=== PATIENT | female | born 1960 | race African-American/Black ===

== ENCOUNTER 2022-12-22 21:42 | Inpatient (IN) | payer BC ==
[~2022-12-22] VITALS: Ht 157.5 cm; Wt 117.9 kg
[2022-12-22 20:00] VITALS: BP 171/65
[2022-12-22 22:01] VITALS: BP 164/65; TEMP 98.5; O2SAT 97
[2022-12-22] MEDS ORDERED: LIDO30AD10 TD (22:10)
[2022-12-22] MEDS ORDERED: BACL10TA PO (22:10)
[2022-12-22] MEDS ORDERED: PRED20TA PO (22:10)
[2022-12-22] MEDS ORDERED: GABA-532 PO (22:10)
[2022-12-22] MEDS: hydrALAZINE HCL 25 MG TABLET PO PRN (23:16)
[2022-12-22] MEDS: HYDROCODONE/APAP 5-325MG TABLET PO PRN (23:17)
[2022-12-23 04:36] VITALS: BP 147/71; TEMP 98.4; O2SAT 96
[2022-12-23] MEDS ORDERED: BISACODYL 10 MG SUPP.RECT RC PRN (07:30)
[2022-12-23 08:00] VITALS: BP 163/83; TEMP 97; O2SAT 98
[2022-12-23] MEDS ORDERED: GABAPENTIN 100 MG CAPSULE PO SCH (09:00)
[2022-12-23 09:26] VITALS: BP 163/83; TEMP 97
[2022-12-23] MEDS: predniSONE 20 MG TABLET PO SCH ×2 (10:07→17:16)
[2022-12-23] MEDS: BACLOFEN 10 MG TABLET PO SCH ×3 (10:08→17:16)
[2022-12-23] MEDS: DOCUSATE SODIUM 100 MG CAPSULE PO SCH ×2 (10:08→20:59)
[2022-12-23] MEDS: GABAPENTIN 300 MG CAPSULE PO SCH ×3 (10:08→17:16)
[2022-12-23] MEDS: LIDOCAINE 5% PATCH TD SCH (11:33)
[2022-12-23 16:15] VITALS: BP 132/80; TEMP 97.2
[2022-12-23 22:44] VITALS: BP 140/86; TEMP 98.4; O2SAT 96
[2022-12-24 04:24] VITALS: BP 134/83; TEMP 98.2; O2SAT 99
[2022-12-24] MEDS: PANTOPRAZOLE SODIUM 40 MG TABLET.DR PO SCH (06:32)
[2022-12-24] MEDS: HYDROCODONE/APAP 5-325MG TABLET PO PRN (06:34)
[2022-12-24 07:55] VITALS: BP 144/63; TEMP 97.6; O2SAT 98
[2022-12-24] MEDS: LIDOCAINE 5% PATCH TD SCH (08:54)
[2022-12-24] MEDS: BACLOFEN 10 MG TABLET PO SCH ×3 (08:54→17:08)
[2022-12-24] MEDS: GABAPENTIN 300 MG CAPSULE PO SCH ×3 (08:55→17:08)
[2022-12-24] MEDS: DOCUSATE SODIUM 100 MG CAPSULE PO SCH ×2 (08:55→21:36)
[2022-12-24] MEDS: predniSONE 20 MG TABLET PO SCH ×2 (08:55→17:08)
[2022-12-24 15:21] VITALS: BP 161/74; TEMP 98.6; O2SAT 98
[2022-12-24 20:45] VITALS: BP 150/76; TEMP 97.7; O2SAT 99
[2022-12-25 04:30] VITALS: BP 178/80; TEMP 97.8; O2SAT 97
[2022-12-25] MEDS: ACETAMINOPHEN 325 MG TABLET PO PRN (04:58)
[2022-12-25] MEDS: hydrALAZINE HCL 25 MG TABLET PO PRN (04:59)
[2022-12-25] MEDS: PANTOPRAZOLE SODIUM 40 MG TABLET.DR PO SCH (06:19)
[2022-12-25 07:37] VITALS: BP 155/76; TEMP 98.4; O2SAT 98
[2022-12-25] MEDS: predniSONE 20 MG TABLET PO SCH ×2 (09:11→17:23)
[2022-12-25] MEDS: DOCUSATE SODIUM 100 MG CAPSULE PO SCH ×2 (09:11→21:04)
[2022-12-25] MEDS: BACLOFEN 10 MG TABLET PO SCH ×3 (09:11→17:23)
[2022-12-25] MEDS: GABAPENTIN 300 MG CAPSULE PO SCH (09:11)
[2022-12-25] MEDS: LIDOCAINE 5% PATCH TD SCH (09:19)
[2022-12-25 15:41] VITALS: BP 167/73; TEMP 97.6; O2SAT 99
[2022-12-25 20:30] VITALS: BP 144/89; TEMP 98.2; O2SAT 98
[2022-12-26 05:04] VITALS: BP 149/59; TEMP 98.4; O2SAT 97
[2022-12-26] MEDS: PANTOPRAZOLE SODIUM 40 MG TABLET.DR PO SCH (06:48)
[2022-12-26 08:00] VITALS: TEMP 98.4; O2SAT 98
[2022-12-26] MEDS: BACLOFEN 10 MG TABLET PO SCH ×3 (09:13→16:53)
[2022-12-26] MEDS: DOCUSATE SODIUM 100 MG CAPSULE PO SCH ×2 (09:13→20:42)
[2022-12-26] MEDS: LIDOCAINE 5% PATCH TD SCH (09:13)
[2022-12-26] MEDS: ACETAMINOPHEN 325 MG TABLET PO PRN (11:24)
[2022-12-26 12:10] VITALS: BP 167/83; TEMP 97.4
[2022-12-26] MEDS: hydrALAZINE HCL 25 MG TABLET PO PRN (12:16)
[2022-12-26 15:44] VITALS: BP 133/69; TEMP 97.5; O2SAT 98
[2022-12-26 20:00] VITALS: BP 145/77; TEMP 98.2; O2SAT 98
[2022-12-27] MEDS: PANTOPRAZOLE SODIUM 40 MG TABLET.DR PO SCH (06:16)
[2022-12-27] MEDS: hydrALAZINE HCL 25 MG TABLET PO PRN ×2 (06:23→20:13)
[2022-12-27] MEDS: HYDROCODONE/APAP 5-325MG TABLET PO PRN (06:23)
[2022-12-27 07:45] VITALS: BP 123/59; TEMP 97.8; O2SAT 98
[2022-12-27] MEDS: LIDOCAINE 5% PATCH TD SCH (08:23)
[2022-12-27] MEDS: DOCUSATE SODIUM 100 MG CAPSULE PO SCH ×2 (08:23→20:12)
[2022-12-27] MEDS: BACLOFEN 10 MG TABLET PO SCH ×3 (08:23→17:24)
[2022-12-27 16:10] VITALS: BP 140/63; TEMP 98; O2SAT 98
[2022-12-27 19:45] VITALS: BP 165/69; TEMP 97.8; O2SAT 98
[2022-12-27] MEDS: TEMAZEPAM 7.5 MG CAPSULE PO PRN (21:21)
[2022-12-28 04:00] VITALS: BP 138/70; TEMP 98.2; O2SAT 98
[2022-12-28 07:33] VITALS: BP 146/63; TEMP 97.8; O2SAT 98
[2022-12-28] MEDS: PANTOPRAZOLE SODIUM 40 MG TABLET.DR PO SCH (09:02)
[2022-12-28] MEDS: LIDOCAINE 5% PATCH TD SCH (09:03)
[2022-12-28] MEDS: DOCUSATE SODIUM 100 MG CAPSULE PO SCH ×2 (09:03→20:10)
[2022-12-28] MEDS: BACLOFEN 10 MG TABLET PO SCH ×3 (09:03→17:37)
[2022-12-28] MEDS: HYDROCODONE/APAP 5-325MG TABLET PO PRN (09:04)
[2022-12-28 16:00] VITALS: BP 160/67; TEMP 98; O2SAT 99
[2022-12-28 20:00] VITALS: BP 148/78; TEMP 98; O2SAT 99
[2022-12-28] MEDS: TEMAZEPAM 7.5 MG CAPSULE PO PRN (22:27)
[2022-12-29 05:49] VITALS: BP 158/74; TEMP 98; O2SAT 99
[2022-12-29] MEDS: ACETAMINOPHEN 325 MG TABLET PO PRN (06:07)
[2022-12-29] MEDS: PANTOPRAZOLE SODIUM 40 MG TABLET.DR PO SCH (06:08)
[2022-12-29] MEDS: hydrALAZINE HCL 25 MG TABLET PO PRN (06:08)
[2022-12-29 07:43] VITALS: BP 143/64; TEMP 98; O2SAT 100
[2022-12-29] MEDS: DOCUSATE SODIUM 100 MG CAPSULE PO SCH ×2 (08:18→20:04)
[2022-12-29] MEDS: LIDOCAINE 5% PATCH TD SCH (08:18)
[2022-12-29] MEDS: BACLOFEN 10 MG TABLET PO SCH ×3 (08:18→16:21)
[2022-12-29 15:56] VITALS: BP 128/58; TEMP 98.5; O2SAT 98
[2022-12-29 20:00] VITALS: BP 166/82; TEMP 97.8; O2SAT 98
[2022-12-30 04:00] VITALS: BP 128/58; TEMP 98.6; O2SAT 98
[2022-12-30] MEDS: PANTOPRAZOLE SODIUM 40 MG TABLET.DR PO SCH (06:02)
[2022-12-30 07:43] VITALS: BP 140/58; TEMP 98.2; O2SAT 99
[2022-12-30] MEDS: DOCUSATE SODIUM 100 MG CAPSULE PO SCH ×2 (08:55→21:47)
[2022-12-30] MEDS: LIDOCAINE 5% PATCH TD SCH (08:55)
[2022-12-30] MEDS: BACLOFEN 10 MG TABLET PO SCH ×3 (08:55→17:03)
[2022-12-30] MEDS: ACETAMINOPHEN 325 MG TABLET PO PRN ×2 (09:06→21:48)
[2022-12-30 15:44] VITALS: BP 140/44; TEMP 98.2; O2SAT 98
[2022-12-30 20:25] VITALS: BP 134/69; TEMP 98.5; O2SAT 98
[2022-12-31 04:00] VITALS: BP 154/78; TEMP 97.5; O2SAT 98
[2022-12-31] MEDS: PANTOPRAZOLE SODIUM 40 MG TABLET.DR PO SCH (07:00)
[2022-12-31 08:00] VITALS: BP 168/71; TEMP 98.5; O2SAT 100
[2022-12-31] MEDS: hydrALAZINE HCL 25 MG TABLET PO PRN (08:18)
[2022-12-31] MEDS: BACLOFEN 10 MG TABLET PO SCH ×3 (08:18→16:10)
[2022-12-31] MEDS: LIDOCAINE 5% PATCH TD SCH (08:18)
[2022-12-31] MEDS: DOCUSATE SODIUM 100 MG CAPSULE PO SCH ×2 (08:18→20:02)
[2022-12-31 15:34] VITALS: BP 155/74; TEMP 98.7; O2SAT 99
[2022-12-31 21:34] VITALS: TEMP 98.2; O2SAT 99
[2023-01-01 05:02] VITALS: BP 153/66; TEMP 98.2; O2SAT 99
[2023-01-01] MEDS: PANTOPRAZOLE SODIUM 40 MG TABLET.DR PO SCH (06:00)
[2023-01-01 07:49] VITALS: BP 155/51; TEMP 98.3; O2SAT 94
[2023-01-01] MEDS: LIDOCAINE 5% PATCH TD SCH (08:32)
[2023-01-01] MEDS: BACLOFEN 10 MG TABLET PO SCH ×3 (08:33→17:12)
[2023-01-01] MEDS: DOCUSATE SODIUM 100 MG CAPSULE PO SCH ×2 (08:33→20:44)
[2023-01-01] MEDS: ACETAMINOPHEN 325 MG TABLET PO PRN (13:58)
[2023-01-01 15:40] VITALS: BP 135/58; TEMP 97.9; O2SAT 98
[2023-01-01 20:15] VITALS: BP 147/67; TEMP 98.2; O2SAT 98
== END 2023-01-01 21:39 | disposition short-term general hospital (02) | DRG 552 ==
PROVIDERS: ADMIT Physical Medicine & Rehabilitation Pain Medicine; ATTEND Physical Medicine & Rehabilitation Pain Medicine
DX: M51.16 Intervertebral disc disorders with radiculopathy, lumbar region (principal); D68.59 Other primary thrombophilia; Z68.42 Body mass index [BMI] 45.0-49.9, adult; M47.26 Other spondylosis with radiculopathy, lumbar region; M21.371 Foot drop, right foot; E66.01 Morbid (severe) obesity due to excess calories; M17.0 Bilateral primary osteoarthritis of knee; R53.1 Weakness; R40.0 Somnolence; R03.0 Elevated blood-pressure reading, without diagnosis of hypertension
CPT/HCPCS: 72148; 97535-GO-CO; A4663; J7512

== ENCOUNTER 2023-01-04 21:05 | Inpatient (IN) | payer BC ==
[~2023-01-04] VITALS: Ht 157.5 cm; Wt 115.7 kg
[~2023-01-04 21:05] MED LIST: BACL10TA PO; GABA-532 PO; LIDO30AD10 TD; PRED20TA PO
[2023-01-04 21:39] VITALS: BP 149/62; TEMP 97.9; O2SAT 99
[2023-01-04] MEDS ORDERED: PANT40TA49 PO (22:51)
[2023-01-04] MEDS ORDERED: ACET-3102 PO (22:51)
[2023-01-04] MEDS ORDERED: CLON0.1T PO (22:51)
[2023-01-04] MEDS ORDERED: LIDO1ADH82 TP (22:51)
[2023-01-04] MEDS ORDERED: ONDA4AMP IV (22:51)
[2023-01-04] MEDS ORDERED: BACL10TA PO (22:51)
[2023-01-04] MEDS ORDERED: DOCU100T2 PO (22:51)
[2023-01-04] MEDS ORDERED: AMLO10TA59 PO (22:51)
[2023-01-04] MEDS ORDERED: ACET-73 PO (22:51)
[2023-01-04] MEDS ORDERED: BISA10SU61 PR (22:51)
[2023-01-04] MEDS ORDERED: NALO1DIS IV (22:51)
[2023-01-04] MEDS ORDERED: HYDR-894 PO (22:51)
[2023-01-05] MEDS: REMEDY ESSENTIAL ZINC PASTE 113 GM TOP PRN (01:06)
[2023-01-05] MEDS: BACLOFEN 10 MG TABLET PO SCH ×4 (01:52→21:00)
[2023-01-05 04:40] VITALS: BP 136/53; TEMP 98.5; O2SAT 99
[2023-01-05 08:00] VITALS: BP 143/63; TEMP 98.3; O2SAT 99
[2023-01-05] MEDS ORDERED: BISACODYL 10 MG SUPP.RECT RC PRN (13:15)
[2023-01-05] MEDS ORDERED: hydrALAZINE HCL 25 MG TABLET PO PRN (13:15)
[2023-01-05 16:12] VITALS: BP 141/70; TEMP 98.8; O2SAT 98
[2023-01-05] MEDS: DOCUSATE SODIUM 100 MG CAPSULE PO SCH (16:26)
[2023-01-05] MEDS ORDERED: Medication Not On Formulary EA (Docusate Sodium 1 TAB) PO SCH (17:00)
[2023-01-05 20:12] VITALS: BP 142/69; TEMP 98; O2SAT 99
[2023-01-06 04:00] VITALS: BP 134/62; TEMP 97.8; O2SAT 97
[2023-01-06] MEDS: PANTOPRAZOLE SODIUM 40 MG TABLET.DR PO SCH (06:19)
[2023-01-06] MEDS: BACLOFEN 10 MG TABLET PO SCH ×3 (06:19→21:41)
[2023-01-06 07:52] VITALS: BP 134/62; TEMP 98.6; O2SAT 97
[2023-01-06] MEDS: DOCUSATE SODIUM 100 MG CAPSULE PO SCH ×2 (08:21→17:40)
[2023-01-06] MEDS: AMLODIPINE 10 MG TABLET PO SCH (08:22)
[2023-01-06] MEDS: LIDOCAINE 5% PATCH TD SCH (08:22)
[2023-01-06] MEDS: PROTEIN SUPPLEMENT (PROSTAT) 30 ML LIQUID PO SCH (08:23)
[2023-01-06] MEDS: OXYCODONE HCL 5 MG TABLET PO PRN ×4 (09:37→12:01)
[2023-01-06 15:02] VITALS: BP 134/55; TEMP 98.4; O2SAT 97
[2023-01-06 20:24] VITALS: BP 126/61; TEMP 97.4; O2SAT 98
[2023-01-07] MEDS: OXYCODONE HCL 5 MG TABLET PO PRN (01:47)
[2023-01-07] MEDS: BACLOFEN 10 MG TABLET PO SCH ×3 (06:02→21:25)
[2023-01-07] MEDS: PANTOPRAZOLE SODIUM 40 MG TABLET.DR PO SCH (06:02)
[2023-01-07 07:54] VITALS: BP 135/67; TEMP 97.7; O2SAT 100
[2023-01-07] MEDS: DOCUSATE SODIUM 100 MG CAPSULE PO SCH ×2 (08:26→16:17)
[2023-01-07] MEDS: LIDOCAINE 5% PATCH TD SCH (08:26)
[2023-01-07] MEDS: PROTEIN SUPPLEMENT (PROSTAT) 30 ML LIQUID PO SCH (08:26)
[2023-01-07] MEDS: AMLODIPINE 10 MG TABLET PO SCH (08:26)
[2023-01-07 15:30] VITALS: BP 134/67; TEMP 98.4; O2SAT 97
[2023-01-07 20:00] VITALS: BP 150/82; TEMP 97.9; O2SAT 99
[2023-01-08 06:05] VITALS: BP 158/80; TEMP 97.9; O2SAT 99
[2023-01-08] MEDS: PANTOPRAZOLE SODIUM 40 MG TABLET.DR PO SCH (06:08)
[2023-01-08] MEDS: OXYCODONE HCL 5 MG TABLET PO PRN ×2 (06:08→21:53)
[2023-01-08] MEDS: BACLOFEN 10 MG TABLET PO SCH ×3 (06:08→21:45)
[2023-01-08 07:31] LABS: BASOPHILS % (AUTO) 0.9 % (0.0-2.0); EOSINOPHILS # (AUTO) 0.3 K/uL (0.0-0.7); EOSINOPHILS % (AUTO) 5.8 % (0.0-7.0); HEMATOCRIT 37.4 % (31.2-41.9); HEMOGLOBIN 12.3 g/dL (10.9-14.3); LYMPHOCYTES % (AUTO) 42.2 % (20.5-51.5); MEAN CORPUSCULAR HEMOGLOBIN 30.5 uug (24.7-32.8); MEAN CORPUSCULAR HGB CONC 33 g/dL (32.3-35.6); MEAN CORPUSCULAR VOLUME 92.5 fL (75.5-95.3); MONOCYTES # (AUTO) 0.5 K/uL (0.1-1.30); MONOCYTES % (AUTO) 9.5 % (0.0-11.0); NEUTROPHILS % (AUTO) 41.6 % (38.5-71.5); PLATELET COUNT (AUTO) 240 K/uL (179-408); RED BLOOD CELL COUNT(AUTO) 4.05 MIL/uL (3.63-4.92); WHITE BLOOD COUNT (AUTO) 4.8 K/uL (3.8-11.8)
[2023-01-08 07:38] LABS: DIFFERENTIAL COMMENT 1
[2023-01-08] MEDS: DOCUSATE SODIUM 100 MG CAPSULE PO SCH ×2 (07:40→16:09)
[2023-01-08] MEDS: AMLODIPINE 10 MG TABLET PO SCH (07:40)
[2023-01-08] MEDS: LIDOCAINE 5% PATCH TD SCH (07:41)
[2023-01-08] MEDS: PROTEIN SUPPLEMENT (PROSTAT) 30 ML LIQUID PO SCH (07:41)
[2023-01-08 07:57] LABS: THYROID STIMULATING HORMONE 2.859 mIU/mL (0.358-3.740)
[2023-01-08 08:00] VITALS: BP 136/63; TEMP 98.2; O2SAT 96
[2023-01-08 08:05] LABS: ALBUMIN 3.3 g/dL (3.4-5.0); BILIRUBIN,TOTAL 0.4 mg/dL (0.2-1.0); CALCIUM 9.2 mg/dL (8.5-10.1); CREATININE 0.6 mg/dL (0.6-1.3); MAGNESIUM 2.1 mg/dL (1.8-2.4); PHOSPHOROUS 3.9 mg/dL (2.5-4.9); POTASSIUM 3.8 mmol/L (3.5-5.1); TOTAL PROTEIN, SERUM 7.4 g/dL (6.4-8.2)
[2023-01-08] MEDS: ACETAMINOPHEN 325 MG TABLET PO PRN (15:02)
[2023-01-08 16:19] VITALS: BP 131/61; TEMP 98.2; O2SAT 99
[2023-01-08 20:00] VITALS: BP 128/60; TEMP 98.1; O2SAT 97
[2023-01-09 04:00] VITALS: BP 126/56; TEMP 97.9; O2SAT 97
[2023-01-09] MEDS: PANTOPRAZOLE SODIUM 40 MG TABLET.DR PO SCH (06:41)
[2023-01-09] MEDS: BACLOFEN 10 MG TABLET PO SCH ×3 (06:41→21:00)
[2023-01-09 08:00] VITALS: BP 147/65; TEMP 98.4; O2SAT 98
[2023-01-09] MEDS: AMLODIPINE 10 MG TABLET PO SCH (08:18)
[2023-01-09] MEDS: DOCUSATE SODIUM 100 MG CAPSULE PO SCH ×2 (08:18→16:01)
[2023-01-09] MEDS: LIDOCAINE 5% PATCH TD SCH (08:19)
[2023-01-09] MEDS: CELECOXIB 200 MG CAPSULE PO SCH (08:53)
[2023-01-09 16:00] VITALS: BP 142/70; TEMP 98.4; O2SAT 98
[2023-01-09 20:00] VITALS: BP 138/62; TEMP 98.4; O2SAT 99
[2023-01-09] MEDS: OXYCODONE HCL 5 MG TABLET PO PRN (22:01)
[2023-01-10] MEDS: BACLOFEN 10 MG TABLET PO SCH ×3 (05:07→21:05)
[2023-01-10 05:19] VITALS: BP 135/61; TEMP 98.2; O2SAT 98
[2023-01-10] MEDS: PANTOPRAZOLE SODIUM 40 MG TABLET.DR PO SCH (06:14)
[2023-01-10 07:34] VITALS: BP 116/59; TEMP 98.2; O2SAT 96
[2023-01-10] MEDS: LIDOCAINE 5% PATCH TD SCH (08:30)
[2023-01-10] MEDS: AMLODIPINE 10 MG TABLET PO SCH (08:31)
[2023-01-10] MEDS: CELECOXIB 200 MG CAPSULE PO SCH (08:31)
[2023-01-10] MEDS: DOCUSATE SODIUM 100 MG CAPSULE PO SCH ×2 (08:31→18:00)
[2023-01-10 15:15] VITALS: BP 119/53; TEMP 98.6; O2SAT 98
[2023-01-10 20:16] VITALS: BP 134/60; TEMP 98.4; O2SAT 98
[2023-01-10] MEDS: OXYCODONE HCL 5 MG TABLET PO PRN (21:08)
[2023-01-11 04:29] VITALS: BP 128/56; TEMP 97.9; O2SAT 98
[2023-01-11] MEDS: BACLOFEN 10 MG TABLET PO SCH ×3 (06:34→22:16)
[2023-01-11] MEDS: PANTOPRAZOLE SODIUM 40 MG TABLET.DR PO SCH (06:34)
[2023-01-11] MEDS: CELECOXIB 200 MG CAPSULE PO SCH (08:29)
[2023-01-11] MEDS: DOCUSATE SODIUM 100 MG CAPSULE PO SCH ×2 (08:29→17:01)
[2023-01-11] MEDS: AMLODIPINE 10 MG TABLET PO SCH (08:31)
[2023-01-11] MEDS: LIDOCAINE 5% PATCH TD SCH (08:32)
[2023-01-11 09:17] VITALS: BP 141/77; TEMP 97.8; O2SAT 98
[2023-01-11 16:11] VITALS: BP 115/60; TEMP 98.5; O2SAT 100
[2023-01-11 20:50] VITALS: BP 152/78; TEMP 98.5; O2SAT 100
[2023-01-11] MEDS: OXYCODONE HCL 5 MG TABLET PO PRN (21:46)
[2023-01-12 06:04] VITALS: BP 126/52; TEMP 98.3; O2SAT 97
[2023-01-12] MEDS: PANTOPRAZOLE SODIUM 40 MG TABLET.DR PO SCH (06:04)
[2023-01-12] MEDS: BACLOFEN 10 MG TABLET PO SCH ×3 (06:04→21:35)
[2023-01-12 07:50] VITALS: BP 112/52; TEMP 98.2; O2SAT 98
[2023-01-12] MEDS: DOCUSATE SODIUM 100 MG CAPSULE PO SCH ×2 (08:18→16:33)
[2023-01-12] MEDS: CELECOXIB 200 MG CAPSULE PO SCH (08:18)
[2023-01-12] MEDS: ACETAMINOPHEN 325 MG TABLET PO PRN (08:21)
[2023-01-12] MEDS: AMLODIPINE 10 MG TABLET PO SCH (08:22)
[2023-01-12] MEDS: LIDOCAINE 5% PATCH TD SCH (09:12)
[2023-01-12 15:26] VITALS: BP 135/59; TEMP 98.2; O2SAT 98
[2023-01-12 20:00] VITALS: BP 159/77; TEMP 98.4; O2SAT 100
[2023-01-12] MEDS: OXYCODONE HCL 5 MG TABLET PO PRN (23:06)
[2023-01-13 04:00] VITALS: BP 148/67; TEMP 98.1; O2SAT 97
[2023-01-13] MEDS: BACLOFEN 10 MG TABLET PO SCH ×3 (05:51→21:45)
[2023-01-13] MEDS: PANTOPRAZOLE SODIUM 40 MG TABLET.DR PO SCH (06:08)
[2023-01-13 07:42] VITALS: BP 133/51; TEMP 97.5; O2SAT 98
[2023-01-13] MEDS: AMLODIPINE 10 MG TABLET PO SCH (08:28)
[2023-01-13] MEDS: DOCUSATE SODIUM 100 MG CAPSULE PO SCH ×2 (08:28→18:03)
[2023-01-13] MEDS: LIDOCAINE 5% PATCH TD SCH (08:29)
[2023-01-13] MEDS: CELECOXIB 200 MG CAPSULE PO SCH (08:29)
[2023-01-13 16:04] VITALS: BP 141/64; TEMP 97.6; O2SAT 98
[2023-01-13 20:37] VITALS: BP 122/53; TEMP 97.9; O2SAT 95
[2023-01-14 04:40] VITALS: BP 125/52; TEMP 98.3; O2SAT 97
[2023-01-14] MEDS: BACLOFEN 10 MG TABLET PO SCH ×3 (05:55→21:20)
[2023-01-14] MEDS: PANTOPRAZOLE SODIUM 40 MG TABLET.DR PO SCH (06:02)
[2023-01-14] MEDS: ACETAMINOPHEN 325 MG TABLET PO PRN (06:02)
[2023-01-14 07:56] VITALS: BP 137/53; TEMP 98.2; O2SAT 100
[2023-01-14] MEDS: LIDOCAINE 5% PATCH TD SCH (08:35)
[2023-01-14] MEDS: AMLODIPINE 10 MG TABLET PO SCH (08:36)
[2023-01-14] MEDS: CELECOXIB 200 MG CAPSULE PO SCH (08:36)
[2023-01-14] MEDS: REMEDY ESSENTIAL ZINC PASTE 113 GM TOP PRN (08:37)
[2023-01-14] MEDS: DOCUSATE SODIUM 100 MG CAPSULE PO SCH ×2 (08:41→17:39)
[2023-01-14 15:02] VITALS: BP 117/67; TEMP 98.3; O2SAT 97
[2023-01-14 20:36] VITALS: BP 130/54; TEMP 97.8; O2SAT 98
[2023-01-14] MEDS: OXYCODONE HCL 5 MG TABLET PO PRN (23:00)
[2023-01-15 04:00] VITALS: BP 126/62; TEMP 98.3; O2SAT 95
[2023-01-15] MEDS: BACLOFEN 10 MG TABLET PO SCH ×3 (05:42→21:27)
[2023-01-15] MEDS: PANTOPRAZOLE SODIUM 40 MG TABLET.DR PO SCH (05:42)
[2023-01-15 07:34] VITALS: BP 122/50; TEMP 97.6; O2SAT 96
[2023-01-15] MEDS: LIDOCAINE 5% PATCH TD SCH (08:23)
[2023-01-15] MEDS: CELECOXIB 200 MG CAPSULE PO SCH (08:25)
[2023-01-15] MEDS: DOCUSATE SODIUM 100 MG CAPSULE PO SCH ×2 (08:25→16:19)
[2023-01-15] MEDS: AMLODIPINE 10 MG TABLET PO SCH (08:25)
[2023-01-15 16:07] VITALS: BP 143/54; TEMP 97.7; O2SAT 98
[2023-01-15 20:00] VITALS: BP 154/73; TEMP 98.5; O2SAT 99
[2023-01-15] MEDS: OXYCODONE HCL 5 MG TABLET PO PRN (20:48)
[2023-01-15 22:30] VITALS: BP 129/76; TEMP 98.6; O2SAT 98
[2023-01-16] MEDS: BACLOFEN 10 MG TABLET PO SCH ×3 (05:19→21:21)
[2023-01-16 05:28] VITALS: BP 126/59; TEMP 97.6; O2SAT 99
[2023-01-16] MEDS: PANTOPRAZOLE SODIUM 40 MG TABLET.DR PO SCH (06:10)
[2023-01-16 07:47] VITALS: BP 128/58; TEMP 97.8; O2SAT 98
[2023-01-16] MEDS: CELECOXIB 200 MG CAPSULE PO SCH (08:33)
[2023-01-16] MEDS: DOCUSATE SODIUM 100 MG CAPSULE PO SCH ×2 (08:34→17:07)
[2023-01-16] MEDS: AMLODIPINE 10 MG TABLET PO SCH (08:38)
[2023-01-16] MEDS: LIDOCAINE 5% PATCH TD SCH (08:38)
[2023-01-16 15:41] VITALS: BP 136/70; TEMP 98; O2SAT 97
[2023-01-16 20:15] VITALS: BP 124/61; TEMP 98.3; O2SAT 100
[2023-01-16] MEDS: ACETAMINOPHEN 325 MG TABLET PO PRN (21:24)
[2023-01-17 04:43] VITALS: BP 145/81; TEMP 97.8; O2SAT 97
[2023-01-17] MEDS: PANTOPRAZOLE SODIUM 40 MG TABLET.DR PO SCH (06:00)
[2023-01-17] MEDS: BACLOFEN 10 MG TABLET PO SCH ×3 (06:00→22:33)
[2023-01-17 07:48] VITALS: BP 140/57; TEMP 97.6; O2SAT 97
[2023-01-17] MEDS: CELECOXIB 200 MG CAPSULE PO SCH (08:41)
[2023-01-17] MEDS: LIDOCAINE 5% PATCH TD SCH (08:41)
[2023-01-17] MEDS: AMLODIPINE 10 MG TABLET PO SCH (08:41)
[2023-01-17] MEDS: DOCUSATE SODIUM 100 MG CAPSULE PO SCH ×2 (08:42→17:03)
[2023-01-17 16:39] VITALS: BP 131/51; TEMP 98.1; O2SAT 99
[2023-01-17 20:18] VITALS: BP 126/57; TEMP 97.8; O2SAT 99
[2023-01-17] MEDS: ACETAMINOPHEN 325 MG TABLET PO PRN (22:33)
[2023-01-18] MEDS: OXYCODONE HCL 5 MG TABLET PO PRN (00:10)
[2023-01-18 04:21] VITALS: BP 126/59; TEMP 98.3; O2SAT 96
[2023-01-18] MEDS: BACLOFEN 10 MG TABLET PO SCH ×3 (06:12→21:26)
[2023-01-18] MEDS: PANTOPRAZOLE SODIUM 40 MG TABLET.DR PO SCH (06:12)
[2023-01-18 07:07] LABS: BASOPHILS % (AUTO) 0.9 % (0.0-2.0); EOSINOPHILS # (AUTO) 0.3 K/uL (0.0-0.7); EOSINOPHILS % (AUTO) 6.3 % (0.0-7.0); HEMATOCRIT 34.9 % (31.2-41.9); HEMOGLOBIN 11.4 g/dL (10.9-14.3); LYMPHOCYTES # (AUTO) 2.6 K/uL (0.8-4.8); LYMPHOCYTES % (AUTO) 50.3 % (20.5-51.5); MEAN CORPUSCULAR HEMOGLOBIN 30.3 uug (24.7-32.8); MEAN CORPUSCULAR HGB CONC 33 g/dL (32.3-35.6); MEAN CORPUSCULAR VOLUME 92.6 fL (75.5-95.3); MONOCYTES # (AUTO) 0.6 K/uL (0.1-1.30); MONOCYTES % (AUTO) 11.3 % (0.0-11.0); NEUTROPHILS # (AUTO) 1.6 K/uL (1.8-8.9); NEUTROPHILS % (AUTO) 31.2 % (38.5-71.5); PLATELET COUNT (AUTO) 205 K/uL (179-408); RED BLOOD CELL COUNT(AUTO) 3.77 MIL/uL (3.63-4.92); RED CELL DISTRIBUTION WIDTH 12.3 % (12.3-17.7); WHITE BLOOD COUNT (AUTO) 5.1 K/uL (3.8-11.8)
[2023-01-18 07:18] LABS: DIFFERENTIAL COMMENT 1
[2023-01-18 07:22] LABS: CALCIUM 9.2 mg/dL (8.5-10.1); CREATININE 0.6 mg/dL (0.6-1.3); MAGNESIUM 2.1 mg/dL (1.8-2.4); POTASSIUM 3.8 mmol/L (3.5-5.1)
[2023-01-18 07:44] VITALS: BP 126/68; TEMP 97.7; O2SAT 99
[2023-01-18] MEDS: DOCUSATE SODIUM 100 MG CAPSULE PO SCH ×2 (08:23→16:38)
[2023-01-18] MEDS: CELECOXIB 200 MG CAPSULE PO SCH (08:23)
[2023-01-18] MEDS: LIDOCAINE 5% PATCH TD SCH (08:24)
[2023-01-18] MEDS: AMLODIPINE 10 MG TABLET PO SCH (11:36)
[2023-01-18 15:55] VITALS: BP 155/77; TEMP 98.1
[2023-01-18 20:19] VITALS: BP 134/55; TEMP 97.7; O2SAT 99
[2023-01-18] MEDS: GABAPENTIN 300 MG CAPSULE PO SCH (21:26)
[2023-01-19 04:15] VITALS: BP 143/49; TEMP 98; O2SAT 96
[2023-01-19] MEDS: PANTOPRAZOLE SODIUM 40 MG TABLET.DR PO SCH (06:13)
[2023-01-19] MEDS: BACLOFEN 10 MG TABLET PO SCH ×3 (06:13→21:20)
[2023-01-19 07:51] VITALS: BP 162/77; TEMP 98; O2SAT 98
[2023-01-19] MEDS: LIDOCAINE 5% PATCH TD SCH (08:32)
[2023-01-19] MEDS: ACETAMINOPHEN 325 MG TABLET PO PRN (08:32)
[2023-01-19] MEDS: CELECOXIB 200 MG CAPSULE PO SCH (08:32)
[2023-01-19] MEDS: AMLODIPINE 10 MG TABLET PO SCH (08:33)
[2023-01-19] MEDS: DOCUSATE SODIUM 100 MG CAPSULE PO SCH ×2 (08:33→17:10)
[2023-01-19 15:07] VITALS: BP 133/64; TEMP 98.1; O2SAT 99
[2023-01-19] MEDS: GABAPENTIN 300 MG CAPSULE PO SCH (20:18)
[2023-01-19 20:21] VITALS: BP 128/72; TEMP 98.4; O2SAT 97
[2023-01-20 05:18] VITALS: BP 120/57; TEMP 98; O2SAT 96
[2023-01-20] MEDS: BACLOFEN 10 MG TABLET PO SCH ×3 (06:05→21:30)
[2023-01-20] MEDS: PANTOPRAZOLE SODIUM 40 MG TABLET.DR PO SCH (06:05)
[2023-01-20 07:37] VITALS: BP 145/65; TEMP 98.4; O2SAT 100
[2023-01-20] MEDS: DOCUSATE SODIUM 100 MG CAPSULE PO SCH ×2 (10:03→17:21)
[2023-01-20] MEDS: AMLODIPINE 10 MG TABLET PO SCH (10:03)
[2023-01-20] MEDS: LIDOCAINE 5% PATCH TD SCH (10:03)
[2023-01-20] MEDS: CELECOXIB 200 MG CAPSULE PO SCH (10:03)
[2023-01-20 15:22] VITALS: BP 134/65; TEMP 98.4; O2SAT 97
[2023-01-20 20:30] VITALS: BP 143/73; TEMP 97.2; O2SAT 99
[2023-01-20] MEDS: GABAPENTIN 300 MG CAPSULE PO SCH (21:03)
[2023-01-20] MEDS: ACETAMINOPHEN 325 MG TABLET PO PRN (21:30)
[2023-01-21 05:26] VITALS: BP 128/56; TEMP 97.5; O2SAT 98
[2023-01-21] MEDS: BACLOFEN 10 MG TABLET PO SCH ×3 (06:25→21:33)
[2023-01-21] MEDS: PANTOPRAZOLE SODIUM 40 MG TABLET.DR PO SCH (06:25)
[2023-01-21 08:00] VITALS: BP 124/59; TEMP 98.3; O2SAT 99
[2023-01-21] MEDS: LIDOCAINE 5% PATCH TD SCH (08:12)
[2023-01-21] MEDS: DOCUSATE SODIUM 100 MG CAPSULE PO SCH ×2 (08:13→16:33)
[2023-01-21] MEDS: CELECOXIB 200 MG CAPSULE PO SCH (08:13)
[2023-01-21] MEDS: AMLODIPINE 10 MG TABLET PO SCH (08:13)
[2023-01-21 14:47] VITALS: BP 139/61; TEMP 97.7; O2SAT 20
[2023-01-21] MEDS: OXYCODONE HCL 5 MG TABLET PO PRN (17:57)
[2023-01-21 20:00] VITALS: BP 147/70; TEMP 97.9; O2SAT 99
[2023-01-21] MEDS: GABAPENTIN 300 MG CAPSULE PO SCH (21:33)
[2023-01-21] MEDS: ACETAMINOPHEN 325 MG TABLET PO PRN (21:33)
[2023-01-22 05:41] VITALS: BP 131/56; TEMP 97.8; O2SAT 98
[2023-01-22] MEDS: BACLOFEN 10 MG TABLET PO SCH ×3 (06:21→21:10)
[2023-01-22] MEDS: PANTOPRAZOLE SODIUM 40 MG TABLET.DR PO SCH (06:21)
[2023-01-22 08:00] VITALS: BP 116/53; TEMP 98.4; O2SAT 95
[2023-01-22] MEDS: LIDOCAINE 5% PATCH TD SCH (08:18)
[2023-01-22] MEDS: AMLODIPINE 10 MG TABLET PO SCH (08:18)
[2023-01-22] MEDS: CELECOXIB 200 MG CAPSULE PO SCH (08:18)
[2023-01-22] MEDS: DOCUSATE SODIUM 100 MG CAPSULE PO SCH ×2 (08:18→16:52)
[2023-01-22 14:59] VITALS: BP 133/65; TEMP 98.8; O2SAT 97
[2023-01-22 20:00] VITALS: BP 129/48; TEMP 98; O2SAT 99
[2023-01-22] MEDS: GABAPENTIN 300 MG CAPSULE PO SCH (20:31)
[2023-01-22] MEDS: OXYCODONE HCL 5 MG TABLET PO PRN (21:20)
[2023-01-23 04:34] VITALS: BP 137/61; TEMP 98; O2SAT 97
[2023-01-23] MEDS: BACLOFEN 10 MG TABLET PO SCH ×3 (06:04→21:28)
[2023-01-23] MEDS: PANTOPRAZOLE SODIUM 40 MG TABLET.DR PO SCH (06:04)
[2023-01-23 07:15] VITALS: BP 125/71; TEMP 97.6; O2SAT 97
[2023-01-23] MEDS: DOCUSATE SODIUM 100 MG CAPSULE PO SCH ×2 (08:02→16:20)
[2023-01-23] MEDS: LIDOCAINE 5% PATCH TD SCH (08:02)
[2023-01-23] MEDS: CELECOXIB 200 MG CAPSULE PO SCH (08:03)
[2023-01-23] MEDS: AMLODIPINE 10 MG TABLET PO SCH (08:03)
[2023-01-23 14:09] VITALS: BP 135/60; TEMP 98; O2SAT 97
[2023-01-23 20:00] VITALS: BP 153/71; TEMP 97.6; O2SAT 96
[2023-01-23] MEDS: GABAPENTIN 300 MG CAPSULE PO SCH (20:00)
[2023-01-23] MEDS: OXYCODONE HCL 5 MG TABLET PO PRN (21:29)
[2023-01-24 04:28] VITALS: BP 129/52; TEMP 97; O2SAT 98
[2023-01-24] MEDS: PANTOPRAZOLE SODIUM 40 MG TABLET.DR PO SCH (06:28)
[2023-01-24] MEDS: BACLOFEN 10 MG TABLET PO SCH ×3 (06:28→21:20)
[2023-01-24 08:00] VITALS: BP 147/66; TEMP 98; O2SAT 99
[2023-01-24] MEDS: DOCUSATE SODIUM 100 MG CAPSULE PO SCH ×2 (08:37→16:41)
[2023-01-24] MEDS: LIDOCAINE 5% PATCH TD SCH (08:37)
[2023-01-24] MEDS: CELECOXIB 200 MG CAPSULE PO SCH (08:37)
[2023-01-24] MEDS: AMLODIPINE 10 MG TABLET PO SCH (08:37)
[2023-01-24 15:30] VITALS: BP 119/56; TEMP 97.6; O2SAT 98
[2023-01-24] MEDS: OXYCODONE HCL 5 MG TABLET PO PRN (18:11)
[2023-01-24] MEDS: GABAPENTIN 300 MG CAPSULE PO SCH (21:20)
[2023-01-24 23:40] VITALS: BP 144/60; TEMP 98.4; O2SAT 98
[2023-01-25] MEDS: ACETAMINOPHEN 325 MG TABLET PO PRN (01:30)
[2023-01-25 04:00] VITALS: BP 123/59; TEMP 98.3; O2SAT 98
[2023-01-25] MEDS: BACLOFEN 10 MG TABLET PO SCH ×3 (06:07→21:06)
[2023-01-25] MEDS: PANTOPRAZOLE SODIUM 40 MG TABLET.DR PO SCH (06:07)
[2023-01-25] MEDS: OXYCODONE HCL 5 MG TABLET PO PRN ×2 (06:22→21:07)
[2023-01-25 07:41] VITALS: BP 123/63; TEMP 97.5; O2SAT 96
[2023-01-25] MEDS: AMLODIPINE 10 MG TABLET PO SCH (08:16)
[2023-01-25] MEDS: CELECOXIB 200 MG CAPSULE PO SCH (08:18)
[2023-01-25] MEDS: DOCUSATE SODIUM 100 MG CAPSULE PO SCH ×2 (08:18→16:15)
[2023-01-25] MEDS: LIDOCAINE 5% PATCH TD SCH (08:18)
[2023-01-25 15:01] VITALS: BP 54/63; TEMP 97.5; O2SAT 96
[2023-01-25 20:39] VITALS: BP 155/69; TEMP 97.5; O2SAT 98
[2023-01-25] MEDS: GABAPENTIN 300 MG CAPSULE PO SCH (21:06)
[2023-01-26 05:24] VITALS: BP 127/54; TEMP 98.1; O2SAT 100
[2023-01-26] MEDS: BACLOFEN 10 MG TABLET PO SCH ×3 (06:11→22:40)
[2023-01-26] MEDS: PANTOPRAZOLE SODIUM 40 MG TABLET.DR PO SCH (06:11)
[2023-01-26 07:34] VITALS: BP 134/64; TEMP 98.4; O2SAT 98
[2023-01-26] MEDS: AMLODIPINE 10 MG TABLET PO SCH (08:17)
[2023-01-26] MEDS: CELECOXIB 200 MG CAPSULE PO SCH (08:17)
[2023-01-26] MEDS: LIDOCAINE 5% PATCH TD SCH (08:17)
[2023-01-26] MEDS: DOCUSATE SODIUM 100 MG CAPSULE PO SCH ×2 (08:17→16:02)
[2023-01-26 16:00] VITALS: BP 123/66; TEMP 98.8; O2SAT 96
[2023-01-26 20:07] VITALS: BP 156/63; TEMP 98.1; O2SAT 97
[2023-01-26] MEDS: GABAPENTIN 300 MG CAPSULE PO SCH (20:15)
[2023-01-27 05:22] VITALS: BP 148/65; TEMP 98.2; O2SAT 96
[2023-01-27] MEDS: BACLOFEN 10 MG TABLET PO SCH ×3 (06:47→21:06)
[2023-01-27] MEDS: PANTOPRAZOLE SODIUM 40 MG TABLET.DR PO SCH (06:47)
[2023-01-27] MEDS: OXYCODONE HCL 5 MG TABLET PO PRN ×2 (06:51→20:47)
[2023-01-27] MEDS: CELECOXIB 200 MG CAPSULE PO SCH (09:41)
[2023-01-27] MEDS: LIDOCAINE 5% PATCH TD SCH (09:41)
[2023-01-27] MEDS: DOCUSATE SODIUM 100 MG CAPSULE PO SCH ×2 (09:42→16:36)
[2023-01-27] MEDS: AMLODIPINE 10 MG TABLET PO SCH (09:42)
[2023-01-27 16:08] VITALS: BP 109/45; TEMP 98.2; O2SAT 96
[2023-01-27 20:15] VITALS: BP 132/68; TEMP 98.1; O2SAT 98
[2023-01-27] MEDS: GABAPENTIN 300 MG CAPSULE PO SCH (20:44)
[2023-01-28] MEDS: BACLOFEN 10 MG TABLET PO SCH ×3 (06:12→20:29)
[2023-01-28] MEDS: PANTOPRAZOLE SODIUM 40 MG TABLET.DR PO SCH (06:12)
[2023-01-28 06:46] VITALS: BP 117/44; TEMP 97.7; O2SAT 97
[2023-01-28 07:49] VITALS: BP 152/55; TEMP 98.5; O2SAT 97
[2023-01-28] MEDS: DOCUSATE SODIUM 100 MG CAPSULE PO SCH ×2 (09:39→16:13)
[2023-01-28] MEDS: AMLODIPINE 10 MG TABLET PO SCH (09:39)
[2023-01-28] MEDS: CELECOXIB 200 MG CAPSULE PO SCH (09:39)
[2023-01-28] MEDS: LIDOCAINE 5% PATCH TD SCH (09:40)
[2023-01-28 16:00] VITALS: BP 124/59; TEMP 98; O2SAT 97
[2023-01-28 20:00] VITALS: BP 136/60; TEMP 97.1; O2SAT 94
[2023-01-28] MEDS: GABAPENTIN 300 MG CAPSULE PO SCH (20:29)
[2023-01-29] MEDS: OXYCODONE HCL 5 MG TABLET PO PRN ×2 (03:13→17:08)
[2023-01-29] MEDS: PANTOPRAZOLE SODIUM 40 MG TABLET.DR PO SCH (06:26)
[2023-01-29] MEDS: BACLOFEN 10 MG TABLET PO SCH ×3 (06:26→22:16)
[2023-01-29 06:31] VITALS: BP 114/56; TEMP 98.3; O2SAT 95
[2023-01-29 08:00] VITALS: BP 109/55; TEMP 98; O2SAT 98
[2023-01-29] MEDS: LIDOCAINE 5% PATCH TD SCH (08:47)
[2023-01-29] MEDS: CELECOXIB 200 MG CAPSULE PO SCH (08:47)
[2023-01-29] MEDS: DOCUSATE SODIUM 100 MG CAPSULE PO SCH ×2 (08:47→17:03)
[2023-01-29] MEDS: AMLODIPINE 10 MG TABLET PO SCH (08:48)
[2023-01-29 16:03] VITALS: BP 119/54; TEMP 98; O2SAT 98
[2023-01-29 20:00] VITALS: BP 144/66; TEMP 97.5; O2SAT 97
[2023-01-29] MEDS: GABAPENTIN 300 MG CAPSULE PO SCH (20:56)
[2023-01-30 04:00] VITALS: BP 99/60; TEMP 97.7; O2SAT 97
[2023-01-30] MEDS: BACLOFEN 10 MG TABLET PO SCH ×3 (05:53→22:06)
[2023-01-30] MEDS: PANTOPRAZOLE SODIUM 40 MG TABLET.DR PO SCH (06:11)
[2023-01-30 08:10] VITALS: BP 111/48; TEMP 97.8; O2SAT 97
[2023-01-30] MEDS: DOCUSATE SODIUM 100 MG CAPSULE PO SCH ×2 (08:21→16:48)
[2023-01-30] MEDS: AMLODIPINE 10 MG TABLET PO SCH (08:21)
[2023-01-30] MEDS: LIDOCAINE 5% PATCH TD SCH (08:21)
[2023-01-30] MEDS: CELECOXIB 200 MG CAPSULE PO SCH (08:21)
[2023-01-30 16:13] VITALS: BP 118/54; TEMP 98.8; O2SAT 98
[2023-01-30] MEDS: OXYCODONE HCL 5 MG TABLET PO PRN (17:19)
[2023-01-30 20:06] VITALS: BP 101/50; TEMP 97.6; O2SAT 98
[2023-01-30] MEDS: GABAPENTIN 300 MG CAPSULE PO SCH (20:42)
[2023-01-31 04:50] VITALS: BP 121/53; TEMP 97.7; O2SAT 98
[2023-01-31] MEDS: BACLOFEN 10 MG TABLET PO SCH ×3 (05:57→21:50)
[2023-01-31] MEDS: PANTOPRAZOLE SODIUM 40 MG TABLET.DR PO SCH (06:36)
[2023-01-31 08:00] VITALS: BP 141/63; TEMP 97.8; O2SAT 98
[2023-01-31] MEDS: LIDOCAINE 5% PATCH TD SCH (08:09)
[2023-01-31] MEDS: DOCUSATE SODIUM 100 MG CAPSULE PO SCH ×2 (08:09→16:44)
[2023-01-31] MEDS: CELECOXIB 200 MG CAPSULE PO SCH (08:09)
[2023-01-31] MEDS: AMLODIPINE 10 MG TABLET PO SCH (08:09)
[2023-01-31 15:19] VITALS: BP 127/57; TEMP 98.4; O2SAT 100
[2023-01-31] MEDS: ACETAMINOPHEN 325 MG TABLET PO PRN (19:16)
[2023-01-31 20:08] VITALS: BP 138/63; TEMP 97.1; O2SAT 98
[2023-01-31] MEDS: GABAPENTIN 300 MG CAPSULE PO SCH (20:56)
[2023-02-01 05:08] VITALS: BP 136/63; TEMP 98.3; O2SAT 98
[2023-02-01] MEDS: BACLOFEN 10 MG TABLET PO SCH ×3 (06:05→21:00)
[2023-02-01] MEDS: PANTOPRAZOLE SODIUM 40 MG TABLET.DR PO SCH (07:04)
[2023-02-01 08:00] VITALS: BP 155/47; TEMP 98.5; O2SAT 99
[2023-02-01] MEDS: CELECOXIB 200 MG CAPSULE PO SCH (08:47)
[2023-02-01] MEDS: DOCUSATE SODIUM 100 MG CAPSULE PO SCH ×2 (08:47→16:04)
[2023-02-01] MEDS: ACETAMINOPHEN 325 MG TABLET PO PRN (08:50)
[2023-02-01] MEDS: AMLODIPINE 10 MG TABLET PO SCH (08:53)
[2023-02-01] MEDS: LIDOCAINE 5% PATCH TD SCH (09:18)
[2023-02-01 16:32] VITALS: BP 146/70; TEMP 98.3; O2SAT 98
[2023-02-01 20:19] VITALS: BP 142/76; TEMP 98; O2SAT 99
[2023-02-01] MEDS: GABAPENTIN 300 MG CAPSULE PO SCH (21:00)
[2023-02-01] MEDS: OXYCODONE HCL 5 MG TABLET PO PRN (21:13)
[2023-02-02 04:25] VITALS: BP 136/62; TEMP 97.5; O2SAT 94
[2023-02-02] MEDS: BACLOFEN 10 MG TABLET PO SCH ×3 (06:09→21:10)
[2023-02-02] MEDS: PANTOPRAZOLE SODIUM 40 MG TABLET.DR PO SCH (06:09)
[2023-02-02 08:00] VITALS: BP 144/59; TEMP 97.6; O2SAT 98
[2023-02-02] MEDS: LIDOCAINE 5% PATCH TD SCH (08:15)
[2023-02-02] MEDS: CELECOXIB 200 MG CAPSULE PO SCH (08:15)
[2023-02-02] MEDS: DOCUSATE SODIUM 100 MG CAPSULE PO SCH ×2 (08:15→16:08)
[2023-02-02] MEDS: AMLODIPINE 10 MG TABLET PO SCH (08:15)
[2023-02-02] MEDS: OXYCODONE HCL 5 MG TABLET PO PRN (17:52)
[2023-02-02 18:21] VITALS: BP 149/49; TEMP 97.7; O2SAT 98
[2023-02-02 20:00] VITALS: BP 145/75; TEMP 98.3; O2SAT 98
[2023-02-02] MEDS: GABAPENTIN 300 MG CAPSULE PO SCH (21:10)
[2023-02-03 04:00] VITALS: BP 144/70; TEMP 97.3; O2SAT 98
[2023-02-03] MEDS: BACLOFEN 10 MG TABLET PO SCH ×3 (06:11→21:24)
[2023-02-03] MEDS: PANTOPRAZOLE SODIUM 40 MG TABLET.DR PO SCH (06:11)
[2023-02-03] MEDS: ACETAMINOPHEN 325 MG TABLET PO PRN ×2 (06:16→14:21)
[2023-02-03 06:35] LABS: BASOPHILS # (AUTO) 0.1 K/UL (0.0-0.2); BASOPHILS % (AUTO) 0.8 % (0.0-2.0); EOSINOPHILS # (AUTO) 0.6 K/uL (0.0-0.7); EOSINOPHILS % (AUTO) 8.2 % (0.0-7.0); HEMATOCRIT 35.9 % (31.2-41.9); HEMOGLOBIN 11.9 g/dL (10.9-14.3); LYMPHOCYTES # (AUTO) 2.9 K/uL (0.8-4.8); LYMPHOCYTES % (AUTO) 43.4 % (20.5-51.5); MEAN CORPUSCULAR HEMOGLOBIN 30.1 uug (24.7-32.8); MEAN CORPUSCULAR HGB CONC 33 g/dL (32.3-35.6); MEAN CORPUSCULAR VOLUME 90.9 fL (75.5-95.3); MONOCYTES # (AUTO) 0.8 K/uL (0.1-1.30); MONOCYTES % (AUTO) 11.9 % (0.0-11.0); NEUTROPHILS # (AUTO) 2.4 K/uL (1.8-8.9); NEUTROPHILS % (AUTO) 35.7 % (38.5-71.5); PLATELET COUNT (AUTO) 192 K/uL (179-408); RED BLOOD CELL COUNT(AUTO) 3.94 MIL/uL (3.63-4.92); RED CELL DISTRIBUTION WIDTH 12.5 % (12.3-17.7); WHITE BLOOD COUNT (AUTO) 6.8 K/uL (3.8-11.8)
[2023-02-03 06:42] LABS: DIFFERENTIAL COMMENT 1
[2023-02-03 07:08] LABS: BILIRUBIN,TOTAL 0.3 mg/dL (0.2-1.0); CALCIUM 9.3 mg/dL (8.5-10.1); CREATININE 0.6 mg/dL (0.6-1.3); MAGNESIUM 2.2 mg/dL (1.8-2.4); PHOSPHOROUS 4.9 mg/dL (2.5-4.9); POTASSIUM 3.9 mmol/L (3.5-5.1); TOTAL PROTEIN, SERUM 6.8 g/dL (6.4-8.2)
[2023-02-03 08:00] VITALS: BP 143/73; TEMP 98.6; O2SAT 99
[2023-02-03] MEDS: DOCUSATE SODIUM 100 MG CAPSULE PO SCH ×2 (09:10→17:06)
[2023-02-03] MEDS: AMLODIPINE 10 MG TABLET PO SCH (09:10)
[2023-02-03] MEDS: LIDOCAINE 5% PATCH TD SCH (09:10)
[2023-02-03] MEDS: CELECOXIB 200 MG CAPSULE PO SCH (11:16)
[2023-02-03 15:45] VITALS: BP 158/81; TEMP 98.7; O2SAT 99
[2023-02-03] MEDS: GABAPENTIN 300 MG CAPSULE PO SCH (20:14)
[2023-02-03 20:45] VITALS: BP 165/84; TEMP 98.5; O2SAT 98
[2023-02-04] MEDS: BACLOFEN 10 MG TABLET PO SCH ×3 (05:35→21:01)
[2023-02-04 06:31] VITALS: BP 127/62; TEMP 97.9; O2SAT 99
[2023-02-04] MEDS: PANTOPRAZOLE SODIUM 40 MG TABLET.DR PO SCH (06:45)
[2023-02-04] MEDS: AMLODIPINE 10 MG TABLET PO SCH (09:09)
[2023-02-04] MEDS: CELECOXIB 200 MG CAPSULE PO SCH (09:09)
[2023-02-04] MEDS: LIDOCAINE 5% PATCH TD SCH (09:09)
[2023-02-04] MEDS: ACETAMINOPHEN 325 MG TABLET PO PRN (09:09)
[2023-02-04] MEDS: DOCUSATE SODIUM 100 MG CAPSULE PO SCH ×2 (09:09→16:06)
[2023-02-04 12:00] VITALS: BP 121/66; TEMP 98.4; O2SAT 96
[2023-02-04 16:00] VITALS: BP 124/65; TEMP 89; O2SAT 98
[2023-02-04 20:10] VITALS: BP 152/80; TEMP 98.5; O2SAT 99
[2023-02-04] MEDS: GABAPENTIN 300 MG CAPSULE PO SCH (21:01)
[2023-02-05 04:08] VITALS: BP 148/83; TEMP 98.6; O2SAT 95
[2023-02-05] MEDS: BACLOFEN 10 MG TABLET PO SCH ×3 (05:49→21:15)
[2023-02-05] MEDS: PANTOPRAZOLE SODIUM 40 MG TABLET.DR PO SCH (06:01)
[2023-02-05 07:55] VITALS: BP 119/83; TEMP 98; O2SAT 99
[2023-02-05] MEDS: CELECOXIB 200 MG CAPSULE PO SCH (08:31)
[2023-02-05] MEDS: LIDOCAINE 5% PATCH TD SCH (08:32)
[2023-02-05] MEDS: DOCUSATE SODIUM 100 MG CAPSULE PO SCH ×2 (08:32→16:09)
[2023-02-05] MEDS: AMLODIPINE 10 MG TABLET PO SCH (08:32)
[2023-02-05] MEDS: GABAPENTIN 300 MG CAPSULE PO SCH ×2 (08:40→21:15)
[2023-02-05 15:48] VITALS: BP 121/65; TEMP 98; O2SAT 98
[2023-02-06] MEDS: BACLOFEN 10 MG TABLET PO SCH ×2 (06:23→13:11)
[2023-02-06] MEDS: PANTOPRAZOLE SODIUM 40 MG TABLET.DR PO SCH (06:23)
[2023-02-06 06:45] VITALS: BP 130/55; TEMP 98.4
[2023-02-06 07:30] VITALS: BP 135/77; TEMP 98.5; O2SAT 99
[2023-02-06] MEDS: CELECOXIB 200 MG CAPSULE PO SCH (08:28)
[2023-02-06 08:29] VITALS: BP 135/77
[2023-02-06] MEDS: LIDOCAINE 5% PATCH TD SCH (08:29)
[2023-02-06] MEDS: GABAPENTIN 300 MG CAPSULE PO SCH (08:29)
[2023-02-06] MEDS: DOCUSATE SODIUM 100 MG CAPSULE PO SCH (08:29)
[2023-02-06] MEDS: AMLODIPINE 10 MG TABLET PO SCH (08:29)
== END 2023-02-06 14:00 | disposition home health service (06) | DRG 552 ==
PROVIDERS: ADMIT Physical Medicine & Rehabilitation Pain Medicine; ATTEND Physical Medicine & Rehabilitation Pain Medicine
DX: M51.16 Intervertebral disc disorders with radiculopathy, lumbar region (principal); Z68.42 Body mass index [BMI] 45.0-49.9, adult; D68.59 Other primary thrombophilia; E66.01 Morbid (severe) obesity due to excess calories; M47.26 Other spondylosis with radiculopathy, lumbar region; M21.371 Foot drop, right foot; M17.0 Bilateral primary osteoarthritis of knee; R53.1 Weakness; G89.29 Other chronic pain; I10 Essential (primary) hypertension; M48.061 Spinal stenosis, lumbar region without neurogenic claudication; R26.2 Difficulty in walking, not elsewhere classified; M25.551 Pain in right hip; M25.552 Pain in left hip
CPT/HCPCS: 36415; 83550; 83735; 84100; 84443; 85025; 97535-GO-CO; A4663